=== PATIENT | female | born 1990 | race Two or more races ===

== ENCOUNTER 2023-05-02 16:33 | Emergency (ER) | payer OTHER ==
[~2023-05-02] VITALS: Ht 167.6 cm; Wt 59.0 kg
[2023-05-02] MEDS ORDERED: WELLBUTRIN SR100 MG PO (16:58)
[2023-05-02] MEDS ORDERED: EPIPEN 2-P0.3 MG/0.3 IM (18:03)
== END 2023-05-02 18:13 | disposition home or self-care (01) ==
LOC: ER 16:33
DX: T78.49XA Other allergy, initial encounter (principal); X58.XXXA Exposure to other specified factors, initial encounter; Z91.013 Allergy to seafood

== ENCOUNTER 2023-05-03 13:46 | Emergency (ER) | payer OTHER ==
[~2023-05-03] VITALS: Ht 167.6 cm; Wt 59.0 kg
[~2023-05-03 13:46] MED LIST: EPIPEN 2-P0.3 MG/0.3 IM; WELLBUTRIN SR100 MG PO
[2023-05-03 15:03] LABS: HEMATOCRIT 42.3 % (36.0-45.00); HEMOGLOBIN 13.6 g/dL (12.0-15.00); MEAN CELL VOLUME 88.2 fL (80.00-100.00); MEAN CORPUSCULAR HEMOGLOBIN 28.4 pg (27.00-32.0); MEAN CORPUSCULAR HGB CONC 32.2 g/dl (32.0-36.0); PLATELET COUNT 340 K/uL (150-450); RED CELL DISTRIBUTION WIDTH 14.7 % (11.5-14.5)
[2023-05-03 15:23] LABS: CALCIUM 9.3 mg/dL (8.5-10.1); CREATININE SERUM 1.08 mg/dL (0.55-1.02); GFR 59.17
[2023-05-03 15:25] LABS: POTASSIUM 3.7 mEq/L (3.5-5.1)
== END 2023-05-03 16:19 | disposition home or self-care (01) ==
LOC: ER 13:46
PROVIDERS: General Practice
DX: T78.49XA Other allergy, initial encounter (principal); X58.XXXA Exposure to other specified factors, initial encounter; Z91.013 Allergy to seafood